=== PATIENT | male | born 1960 | race Caucasian/White ===

== ENCOUNTER 2017-11-20 14:18 | Inpatient (IN) | payer MEDICAID, OTHER ==
[~2017-11-20] VITALS: Ht 188 cm; Wt 83.7 kg
[2017-11-20] MEDS ORDERED: CLINDAMYCIN PMX 600MG/50ML 50 ML IVPB ONE (16:00)
[2017-11-20] MEDS ORDERED: SODIUM CHLORIDE FLUSH 10ML SYR IVF ONE (16:00)
[2017-11-20] MEDS ORDERED: SODIUM CHLORIDE 0.9% 1,000ML IVBOLUS ONE (16:00)
[2017-11-20 16:26] LABS: BASOPHILS # (AUTO) 0.06 x10^3/uL (0-0.1); BASOPHILS % (AUTO) 1 % (0-1); EOSINOPHILS # (AUTO) 0.22 x10^3/uL (0-0.4); EOSINOPHILS % (AUTO) 3 % (1-7); LYMPHOCYTES # (AUTO) 1.89 x10^3/uL (1-3.4); LYMPHOCYTES % (AUTO) 26 % (22-44); MD NO; MEAN CORPUSCULAR HEMOGLOBIN 23.7 pg (27.5-34.5); MEAN CORPUSCULAR HGB CONC 31.7 g/dL (33.2-36.2); MEAN CORPUSCULAR VOLUME 74.8 fL (81-97); MEAN PLATELET VOLUME 6.3 fL (7.4-10.4); MONOCYTES # (AUTO) 0.63 x10^3/uL (0.2-0.8); MONOCYTES % (AUTO) 9 % (2-9); NEUTROPHILS % (AUTO) 61 % (42-75); PLATELET COUNT 483 x10^3/uL (130-400); RED BLOOD COUNT 4.56 x10^6/uL (4.38-5.82); RED CELL DISTRIBUTION WIDTH 17.2 % (9.4-14.8)
[2017-11-20 16:36] LABS: ALANINE AMINOTRANSFERASE 33 U/L (12-78); ALBUMIN 2.9 g/dL (3.4-5.0); ANION GAP 7 mmol/L (5-15); CALCIUM 8.3 mg/dL (8.5-10.1); CHLORIDE 106 mmol/L (98-107); CREATININE 0.98 mg/dL (0.7-1.3)
[2017-11-20 16:38] LABS: ALKALINE PHOSPHATASE 92 U/L (45-117); BILIRUBIN,TOTAL 0.4 mg/dL (0.2-1.0); TOTAL PROTEIN 8.9 g/dL (6.4-8.2)
[2017-11-20] MEDS ORDERED: CLINDAMYCIN PMX 600MG/50ML 50 ML ONE (17:42)
[2017-11-20 19:25] VITALS: BP 129/74
[2017-11-20] MEDS ORDERED: hydrALAzine 20 MG/ML, 1ML IVPush PRN (19:30)
[2017-11-20] MEDS ORDERED: ONDANSETRON ODT 4 MG PO PRN (19:30)
[2017-11-20] MEDS ORDERED: TRAZODONE 50MG TABLET PO PRN (19:30)
[2017-11-20] MEDS ORDERED: DOCUSATE 100 MG CAPSULE PO PRN (19:30)
[2017-11-20] MEDS ORDERED: ACETAMINOPHEN 325 MG TABLET PO PRN (19:30)
[2017-11-20] MEDS: ENOXAPARIN 40 MG/0.4 ML SQ SCH (20:46)
[2017-11-20] MEDS: LACTOBACILLUS 1GM/ PACKET PO SCH (20:46)
[2017-11-21 01:10] VITALS: BP 146/86
[2017-11-21] MEDS: MORPHINE SULFATE 4 MG/ML, 1ML IVPush PRN ×4 (01:36→12:38)
[2017-11-21] MEDS: CLINDAMYCIN PMX 600MG/50ML 50 ML IV SCH ×4 (01:48→19:54)
[2017-11-21 05:53] LABS: BASOPHILS # (AUTO) 0.04 x10^3/uL (0-0.1); BASOPHILS % (AUTO) 1 % (0-1); EOSINOPHILS # (AUTO) 0.27 x10^3/uL (0-0.4); EOSINOPHILS % (AUTO) 4 % (1-7); LYMPHOCYTES # (AUTO) 2.39 x10^3/uL (1-3.4); LYMPHOCYTES % (AUTO) 34 % (22-44); MD NO; MEAN CORPUSCULAR HEMOGLOBIN 23.9 pg (27.5-34.5); MEAN CORPUSCULAR HGB CONC 31.9 g/dL (33.2-36.2); MEAN CORPUSCULAR VOLUME 74.8 fL (81-97); MEAN PLATELET VOLUME 6.2 fL (7.4-10.4); MONOCYTES % (AUTO) 10 % (2-9); NEUTROPHILS # (AUTO) 3.61 x10^3/uL (1.8-6.8); NEUTROPHILS % (AUTO) 52 % (42-75); PLATELET COUNT 395 x10^3/uL (130-400); RED BLOOD COUNT 4.24 x10^6/uL (4.38-5.82)
[2017-11-21 06:06] LABS: ANION GAP 7 mmol/L (5-15); CALCIUM 8.2 mg/dL (8.5-10.1); CHLORIDE 105 mmol/L (98-107); CREATININE 1.08 mg/dL (0.7-1.3)
[2017-11-21 06:45] VITALS: BP 145/93
[2017-11-21] MEDS: LACTOBACILLUS 1GM/ PACKET PO SCH ×3 (08:02→19:54)
[2017-11-21 13:55] VITALS: BP 127/81
[2017-11-21 19:32] VITALS: BP 127/75
[2017-11-21] MEDS: ENOXAPARIN 40 MG/0.4 ML SQ SCH (19:54)
[2017-11-22 01:21] VITALS: BP 127/82
[2017-11-22] MEDS: CLINDAMYCIN PMX 600MG/50ML 50 ML IV SCH ×4 (01:59→19:51)
[2017-11-22 07:43] VITALS: BP 131/80
[2017-11-22] MEDS: LACTOBACILLUS 1GM/ PACKET PO SCH ×3 (11:34→19:51)
[2017-11-22] MEDS ORDERED: AMOX1TAB64 PO (13:19)
[2017-11-22] MEDS ORDERED: ACET325T14 PO (13:19)
[2017-11-22] MEDS ORDERED: DIPHENHYDRAMINE 25 MG CAPSULE PO PRN (13:30)
[2017-11-22 13:50] VITALS: BP 145/83
[2017-11-22] MEDS: ENOXAPARIN 40 MG/0.4 ML SQ SCH (19:50)
[2017-11-22 19:52] VITALS: BP 130/84
[2017-11-23] MEDS: CLINDAMYCIN PMX 600MG/50ML 50 ML IV SCH ×2 (02:06→08:18)
[2017-11-23 04:12] VITALS: BP 138/77
[2017-11-23 08:13] VITALS: BP 148/99
[2017-11-23] MEDS: LACTOBACILLUS 1GM/ PACKET PO SCH (08:18)
== END 2017-11-23 14:00 | disposition home or self-care (01) | DRG 603 ==
LOC: ED 15:47 → EDIP 15:48 → ED 16:21 → 3NE 18:33
PROVIDERS: ADMIT Hospitalist; ATTEND Hospitalist
DX: L03.116 Cellulitis of left lower limb (principal); E44.0 Moderate protein-calorie malnutrition; F20.0 Paranoid schizophrenia; L97.819 Non-pressure chronic ulcer of other part of right lower leg with unspecified severity; L97.829 Non-pressure chronic ulcer of other part of left lower leg with unspecified severity; L03.115 Cellulitis of right lower limb; I87.8 Other specified disorders of veins; I87.2 Venous insufficiency (chronic) (peripheral); Z68.23 Body mass index [BMI] 23.0-23.9, adult; Z59.0 Homelessness; Z72.0 Tobacco use; Z86.14 Personal history of Methicillin resistant Staphylococcus aureus infection
CPT/HCPCS: 36415; 80048; 80053; 83605; 85025; 87040; 87070; 87077; 87147; 87186; 87205; 93922; 99285; J1650; J7030; Q0163

== ENCOUNTER 2018-11-04 21:56 | Emergency (ER) | payer OTHER ==
[~2018-11-04] VITALS: Ht 185.4 cm; Wt 91.3 kg
[~2018-11-04 21:56] MED LIST: ACET325T14 PO; AMOX1TAB64 PO
[2018-11-04] MEDS ORDERED: IBUPROFEN 200 MG TABLET PO ONE (22:30)
[2018-11-04] MEDS ORDERED: ACETAMINOPHEN 500 MG TABLET PO ONE (22:30)
[2018-11-04] MEDS ORDERED: ACETAMINOPHEN 500 MG TABLET ONE (22:51)
[2018-11-04 22:52] LABS: BASOPHILS # (AUTO) 0.12 x10^3/uL (0-0.1); BASOPHILS % (AUTO) 1 % (0-1); EOSINOPHILS # (AUTO) 0.43 x10^3/uL (0-0.4); EOSINOPHILS % (AUTO) 5 % (1-7); LYMPHOCYTES # (AUTO) 3.75 x10^3/uL (1-3.4); LYMPHOCYTES % (AUTO) 41 % (22-44); MD NO; MEAN CORPUSCULAR HEMOGLOBIN 22.9 pg (27.5-34.5); MEAN CORPUSCULAR HGB CONC 31.4 g/dL (33.2-36.2); MEAN CORPUSCULAR VOLUME 72.8 fL (81-97); MEAN PLATELET VOLUME 7.4 fL (7.4-10.4); MONOCYTES # (AUTO) 0.79 x10^3/uL (0.2-0.8); MONOCYTES % (AUTO) 9 % (2-9); NEUTROPHILS # (AUTO) 4.11 x10^3/uL (1.8-6.8); NEUTROPHILS % (AUTO) 45 % (42-75); PLATELET COUNT 375 x10^3/uL (130-400); RED BLOOD COUNT 5.16 x10^6/uL (4.38-5.82); RED CELL DISTRIBUTION WIDTH 17.7 % (9.4-14.8)
[2018-11-04] MEDS ORDERED: IBUPROFEN 600 MG TABLET ONE (22:52)
[2018-11-04 23:00] LABS: ANION GAP 8 mmol/L (5-15); CALCIUM 8.8 mg/dL (8.5-10.1); CHLORIDE 109 mmol/L (98-107); CREATININE 1.51 mg/dL (0.7-1.3)
[2018-11-04] MEDS ORDERED: BACITRACIN ZINC OINT 500U/GM, 0.9 GM ONE (23:13)
[2018-11-04 23:46] VITALS: BP 169/108
== END 2018-11-05 00:05 | disposition home or self-care (01) ==
LOC: ED 23:50
DX: G89.29 Other chronic pain (principal); M79.661 Pain in right lower leg; M79.662 Pain in left lower leg; F17.200 Nicotine dependence, unspecified, uncomplicated; I10 Essential (primary) hypertension
CPT/HCPCS: 36415; 80048; 82040; 85025; 99283